=== PATIENT | male | born 2000 | race Caucasian/White ===

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

== ENCOUNTER 2019-11-17 21:04 | Emergency (ER) | payer OTHER ==
[~2019-11-17] VITALS: Ht 180.3 cm; Wt 77.1 kg
[~2019-11-17 21:04] MED LIST changes: +INTUNIV2 MG PO; +OMEPRAZOLE20 MG PO
--- OUTSIDE RECORDS SUMMARY | 2019-11-17 21:06 | XMS ---
PreManage Notification: JOEY URBINA Security Lavatory Attendant Events No recent Security Events currently on file CRITERIA MET - Group Notification - [facility] - Has Care Guidelines CARE PROVIDERS There are no care providers on record at this time. Romel has no Care Guidelines for this patient. Care History Medical/Surgical 09/01/2018 [facility] - CHW CALLED PATIENT- NO PCP - - PATIENT CONTACT NUMBER HAS CALLING RESTRICTIONS -UNABLE TO CONTACT PATIENT. - SENT NO PCP LETTER E.DAshley VISIT COUNT (12 MO.) 2 [facility]. TOTAL 2 NOTE: Visits indicate total known visits. ED/UCC VISIT TRACKING (12 MO.) 11/17/2019 21:04 [facility] [place] TYPE: Emergency COMPLAINT: - SHOULDER PAIN 01/30/2019 23:38 [facility] [place] TYPE: Emergency COMPLAINT: - SORE THORAT,FEVER DIAGNOSES: - Attention-deficit hyperactivity disorder, unspecified type - Acute upper respiratory infection, unspecified - Other retirement (current) drug therapy - Acute pharyngitis, unspecified - Personal history of nicotine dependence - Major depressive disorder, single episode, unspecified INPATIENT VISIT TRACKING (12 MO.) No inpatient visits to display in this time frame [id number]
== END 2019-11-17 21:28 | disposition home or self-care (01) ==
LOC: ED 21:04
DX: M25.511 Pain in right shoulder (principal); F32.9 Major depressive disorder, single episode, unspecified; F90.9 Attention-deficit hyperactivity disorder, unspecified type
CPT/HCPCS: 99283; A9270

== ENCOUNTER 2020-06-15 18:57 | Emergency (ER) | payer OTHER ==
[~2020-06-15] VITALS: Ht 180.3 cm; Wt 81.6 kg
--- OUTSIDE RECORDS SUMMARY | 2020-06-15 19:00 | XMS ---
PreManage Notification: JOEY URBINA Security Finance Advisor Events No recent Security Events currently on file CRITERIA MET - Group Notification CARE PROVIDERS There are no care providers on record at this time. Romel has no Care Guidelines for this patient. Care History Medical/Surgical 09/01/2018 [facility] - CHW CALLED PATIENT- NO PCP - - PATIENT CONTACT NUMBER HAS CALLING RESTRICTIONS -UNABLE TO CONTACT PATIENT. - SENT NO PCP LETTER E.D. VISIT COUNT (12 MO.) 2 [facility] TOTAL 2 NOTE: Visits indicate total known visits. ED/UCC VISIT TRACKING (12 MO.) 06/15/2020 18:[address] [facility] [place] TYPE: Emergency COMPLAINT: - ABDOMINAL PAIN 11/17/2019 21:04 [facility] [place] TYPE: Emergency COMPLAINT: - SHOULDER PAIN DIAGNOSES: - Attention-deficit hyperactivity disorder, unspecified type - Pain in right shoulder - Major depressive disorder, single episode, unspecified INPATIENT VISIT TRACKING (12 MO.) No inpatient visits to display in this time frame [email or web address]
[2020-06-15] MEDS ORDERED: PEPCID20 MG PO (20:07)
== END 2020-06-15 20:39 | disposition home or self-care (01) ==
LOC: ED 18:57
DX: R10.84 Generalized abdominal pain (principal); F90.9 Attention-deficit hyperactivity disorder, unspecified type; F17.200 Nicotine dependence, unspecified, uncomplicated
CPT/HCPCS: 80053; 83690; 85025; 99284

== ENCOUNTER 2021-01-30 19:53 | Emergency (ER) | payer OTHER ==
[~2021-01-30] VITALS: Ht 180.3 cm; Wt 77.1 kg
[~2021-01-30 19:53] MED LIST changes: +PEPCID20 MG PO
--- OUTSIDE RECORDS SUMMARY | 2021-01-30 20:00 | XMS ---
PreManage Notification: JOEY URBINA Security Tube Handler Events No recent Security Events currently on file CRITERIA MET - Group Notification CARE PROVIDERS There are no care providers on record at this time. Romel has no Care Guidelines for this patient. Care History Medical/Surgical 09/01/2018 [facility] - CHW CALLED PATIENT- NO PCP - - PATIENT CONTACT NUMBER HAS CALLING RESTRICTIONS -UNABLE TO CONTACT PATIENT. - SENT NO PCP LETTER E.D. VISIT COUNT (12 MO.) 2 [facility] TOTAL 2 NOTE: Visits indicate total known visits. ED/UCC VISIT TRACKING (12 MO.) 01/30/2021 19:53 [facility] [place] TYPE: Emergency COMPLAINT: - BACK PAIN 06/15/2020 18:57 [facility] [place] TYPE: Emergency COMPLAINT: - ABDOMINAL PAIN DIAGNOSES: - Attention-deficit hyperactivity disorder, unspecified type - Generalized abdominal pain - Nicotine dependence, unspecified, uncomplicated INPATIENT VISIT TRACKING (12 MO.) No inpatient visits to display in this time frame [id number]
== END 2021-01-30 20:32 | disposition home or self-care (01) ==
LOC: ED 19:53
DX: M54.5 Low back pain (principal); F17.200 Nicotine dependence, unspecified, uncomplicated; G89.29 Other chronic pain; Z91.040 Latex allergy status
CPT/HCPCS: 99283

== ENCOUNTER 2021-02-01 16:09 | Emergency (ER) | payer OTHER ==
[~2021-02-01] VITALS: Ht 180.3 cm; Wt 77.1 kg
--- OUTSIDE RECORDS SUMMARY | 2021-02-01 16:16 | XMS ---
PreManage Notification: JOEY URBINA Security Cad Designer Drafter Events No recent Security Events currently on file CRITERIA MET - Group Notification - [facility] - 2 Visits in 30 Days CARE PROVIDERS There are no care providers on record at this time. Romel has no Care Guidelines for this patient. Care History Medical/Surgical 01/31/2021 [facility] - CHW RECEIVED CASE MGMNT CONSULT TO HELP PATIENT SET UP WITH A LOCAL PCP. - CHW CALLED PATIENT- PHONE IS STILL RESTRICTED - CHW SENT NO PCP LETTER ALONG WITH LOCAL CLINICS LISTED. 09/01/2018 [facility] - CHW CALLED PATIENT- NO PCP - - PATIENT CONTACT NUMBER HAS CALLING RESTRICTIONS -UNABLE TO CONTACT PATIENT. - SENT NO PCP LETTER ECarine VISIT COUNT (12 MO.) 3 [facility] TOTAL 3 NOTE: Visits indicate total known visits. ED/UCC VISIT TRACKING (12 MO.) 02/01/2021 16:10 [facility] [place] TYPE: Emergency COMPLAINT: - BACK PAIN 01/30/2021 19:53 [facility] [place] TYPE: Emergency COMPLAINT: - BACK PAIN/ NO INJURY 06/15/2020 18:57 [facility] [place] TYPE: Emergency COMPLAINT: - ABDOMINAL PAIN DIAGNOSES: - Attention-deficit hyperactivity disorder, unspecified type - Generalized abdominal pain - Nicotine dependence, unspecified, uncomplicated INPATIENT VISIT TRACKING (12 MO.) No inpatient visits to display in this time frame [id number]
== END 2021-02-01 18:15 | disposition home or self-care (01) ==
LOC: ED 16:09
DX: M54.5 Low back pain (principal); G89.29 Other chronic pain; F17.200 Nicotine dependence, unspecified, uncomplicated; Z91.040 Latex allergy status
CPT/HCPCS: 72100; 99283-25

== ENCOUNTER 2021-04-30 13:47 | Emergency (ER) | payer OTHER ==
[~2021-04-30] VITALS: Ht 180.3 cm; Wt 80.6 kg
--- OUTSIDE RECORDS SUMMARY | 2021-04-30 13:54 | XMS ---
PreManage Notification: JOEY URBINA Security Teacher Adult Education Events No recent Security Events currently on file CRITERIA MET - Group Notification CARE PROVIDERS There are no care providers on record at this time. Romel has no Care Guidelines for this patient. Care History Medical/Surgical 01/31/2021 [facility] - CHW RECEIVED CASE MGMNT CONSULT TO HELP PATIENT SET UP WITH A LOCAL PCP. - CHW CALLED PATIENT- PHONE IS STILL RESTRICTED - CHW SENT NO PCP LETTER ALONG WITH LOCAL CLINICS LISTED. 09/01/2018 [facility] - CHW CALLED PATIENT- NO PCP - - PATIENT CONTACT NUMBER HAS CALLING RESTRICTIONS -UNABLE TO CONTACT PATIENT. - SENT NO PCP LETTER E.Best VISIT COUNT (12 MO.) 4 [facility] TOTAL 4 NOTE: Visits indicate total known visits. ED/C VISIT TRACKING (12 MO.) 04/30/2021 13:[address] [facility] [address] [place] TYPE: Emergency COMPLAINT: - TAILBONE INJURY 02/01/2021 16:[address] [facility] [address] [facility] [place] TYPE: Emergency COMPLAINT: - BACK PAIN DIAGNOSES: - Low back pain - Other chronic pain - Latex allergy status - Nicotine dependence, unspecified, uncomplicated - Dorsalgia, unspecified 01/30/2021 19:[address] [facility] [address] [facility] [place] TYPE: Emergency COMPLAINT: - BACK PAIN/ NO INJURY DIAGNOSES: - Other chronic pain - Low back pain - Nicotine dependence, unspecified, uncomplicated - Latex allergy status 06/15/2020 18:57 [facility] [place] [facility] [place] TYPE: Emergency COMPLAINT: - ABDOMINAL PAIN DIAGNOSES: - Attention-deficit hyperactivity disorder, unspecified type - Generalized abdominal pain - Nicotine dependence, unspecified, uncomplicated INPATIENT VISIT TRACKING (12 MO.) No inpatient visits to display in this time frame [id number]
[2021-04-30] MEDS ORDERED: CEPHALEXIN500 M1 PO (14:16)
== END 2021-04-30 14:26 | disposition home or self-care (01) ==
LOC: ED 13:47
DX: L05.91 Pilonidal cyst without abscess (principal); F17.200 Nicotine dependence, unspecified, uncomplicated; Z91.048 Other nonmedicinal substance allergy status
CPT/HCPCS: 99282

== ENCOUNTER 2021-05-04 17:57 | Emergency (ER) | payer OTHER ==
[~2021-05-04] VITALS: Ht 180.3 cm; Wt 80.6 kg
[~2021-05-04 17:57] MED LIST changes: +CEPHALEXIN500 M1 PO
--- OUTSIDE RECORDS SUMMARY | 2021-05-04 18:04 | XMS ---
PreManage Notification: JOEY URBINA Security Double Bottom Driver Events No recent Security Events currently on file CRITERIA MET - [facility] [place] - 2 Visits in 30 Days - Group Notification CARE PROVIDERS There are no care providers on record at this time. Romel has no Care Guidelines for this patient. Care History Medical/Surgical 01/31/2021 [facility] - CHW RECEIVED CASE MGMNT CONSULT TO HELP PATIENT SET UP WITH A LOCAL PCP. - CHW CALLED PATIENT- PHONE IS STILL RESTRICTED - CHW SENT NO PCP LETTER ALONG WITH LOCAL CLINICS LISTED. 09/01/2018 [facility] - CHW CALLED PATIENT- NO PCP - - PATIENT CONTACT NUMBER HAS CALLING RESTRICTIONS -UNABLE TO CONTACT PATIENT. - SENT NO PCP LETTER ECarine VISIT COUNT (12 MO.) 5 [facility] [place] TOTAL 5 NOTE: Visits indicate total known visits. ED/UCC VISIT TRACKING (12 MO.) 05/04/2021 17:58 [facility] [place] TYPE: Emergency COMPLAINT: - ABSCESS 04/30/2021 13:47 [facility] [place] [facility] [place] TYPE: Emergency COMPLAINT: - TAILBONE INJURY DIAGNOSES: - Nicotine dependence, unspecified, uncomplicated - Other nonmedicinal substance allergy status - Pilonidal cyst without abscess 02/01/2021 16:[address] [facility] [place] TYPE: Emergency COMPLAINT: - BACK PAIN DIAGNOSES: - Low back pain - Other chronic pain - Latex allergy status - Nicotine dependence, unspecified, uncomplicated - Dorsalgia, unspecified 01/30/2021 19:[address] [facility] [place] TYPE: Emergency COMPLAINT: - BACK PAIN/ NO INJURY DIAGNOSES: - Other chronic pain - Low back pain - Nicotine dependence, unspecified, uncomplicated - Latex allergy status 06/15/2020 18:[address] [facility] [place] TYPE: Emergency COMPLAINT: - ABDOMINAL PAIN DIAGNOSES: - Attention-deficit hyperactivity disorder, unspecified type - Generalized abdominal pain - Nicotine dependence, unspecified, uncomplicated INPATIENT VISIT TRACKING (12 MO.) No inpatient visits to display in this time frame [email or web address]
== END 2021-05-04 20:33 | disposition home or self-care (01) ==
LOC: ED 17:57
DX: L05.91 Pilonidal cyst without abscess (principal); F90.9 Attention-deficit hyperactivity disorder, unspecified type; F17.200 Nicotine dependence, unspecified, uncomplicated; Z91.048 Other nonmedicinal substance allergy status
CPT/HCPCS: 99282

== ENCOUNTER 2022-08-21 12:39 | Emergency (ER) | payer OTHER ==
[~2022-08-21] VITALS: Ht 180.3 cm; Wt 80.6 kg
--- OUTSIDE RECORDS SUMMARY | 2022-08-21 12:49 | XMS ---
PreManage Notification: JOEY URBINA Security Lemon Picker Events 1 event(s) in the past 18 months Most recent security events: [facility]op[facility] at [facility] 05/10/2021 18:43 - Other Details: PATIENT LWBS CRITERIA MET - Group Notification CARE PROVIDERS SHAISTA PEREZ Physician Drum Maker Current PHONE: Unknown Romel has no Care Guidelines for this patient. Care History Medical/Surgical 01/31/2021 [facility] - CHW RECEIVED CASE MGMNT CONSULT TO HELP PATIENT SET UP WITH A LOCAL PCP. - CHW CALLED PATIENT- PHONE IS STILL RESTRICTED - CHW SENT NO PCP LETTER ALONG WITH LOCAL CLINICS LISTED. 09/01/2018 [facility] - CHW CALLED PATIENT- NO PCP - - PATIENT CONTACT NUMBER HAS CALLING RESTRICTIONS -UNABLE TO CONTACT PATIENT. - SENT NO PCP LETTER E.D. VISIT COUNT (12 MO.) 1 [facility]. TOTAL 1 NOTE: Visits indicate total known visits. ED/UCC VISIT TRACKING (12 MO.) 08/21/2022 12:[address] [facility] [place] TYPE: Emergency COMPLAINT: - MEDICAL CLEARANCE INPATIENT VISIT TRACKING (12 MO.) No inpatient visits to display in this time frame [email or web address]
== END 2022-08-23 09:27 | disposition home or self-care (01) ==
LOC: ED 12:39
DX: R45.850 Homicidal ideations (principal); Z20.822 Contact with and (suspected) exposure to COVID-19; R45.851 Suicidal ideations; F17.200 Nicotine dependence, unspecified, uncomplicated
CPT/HCPCS: 36415; 80053; 81003; 84443; 85025; 99284; A9270-GY; C9803; G0480; U0003

== ENCOUNTER 2024-06-17 18:10 | Emergency (ER) | payer OTHER ==
[~2024-06-17] VITALS: Ht 180.3 cm; Wt 82.0 kg
[2024-06-17] MEDS ORDERED: CYCLOBENZAPRINE HCL 10 MG TAB PO ONE (18:30)
[2024-06-17] MEDS ORDERED: LIDOCAINE HCL 4% 1 EACH PATCH TD ONE (18:30)
[2024-06-17] MEDS ORDERED: KETOROLAC TROMETHAMINE 60 MG/2 ML VIAL IM ONE (18:30)
[2024-06-17] MEDS ORDERED: KETOROLAC TROME10 MG PO (19:00)
[2024-06-17] MEDS ORDERED: CYCLOBENZAPRINE10 MG PO (19:00)
[2024-06-17] MEDS ORDERED: LIDODERM1 EACH TOP (19:00)
[2024-06-17 19:04] VITALS: BP 130/79
[2024-06-17] MEDS ORDERED: LIDOCAINE PATCH REMOVAL 1 EA TD SCH (21:00)
== END 2024-06-17 19:04 | disposition home or self-care (01) ==
LOC: ED 18:10
DX: M54.50 Low back pain, unspecified (principal); F17.200 Nicotine dependence, unspecified, uncomplicated; Z91.048 Other nonmedicinal substance allergy status
CPT/HCPCS: 96372; 99283; A9270; J1885